=== PATIENT | male | born 1985 ===

== ENCOUNTER 2016-05-28 16:57 | Emergency (ER) | payer SELFPAY ==
[2016-05-28 17:36] VITALS: RESP 16
--- NOTE | 2016-05-28 17:48 | RAD ---
HISTORY: LLQ pain COMPARISON: No prior. FINDINGS: BOWEL: Dqss-aw-fvhnevsd constipation. . No obstruction. No free air. BONES: Normal. OTHER FINDINGS: None. IMPRESSION: Zbat-xz-kuykplvf constipation.
[2016-05-28 18:00] LABS: URINE BILIRUBIN NEGATIVE (NEGATIVE); URINE BLOOD NEGATIVE (NEGATIVE); URINE COLOR Straw (YELLOW); URINE GLUCOSE (UA) NORMAL (Normal); URINE KETONE NEGATIVE (NEGATIVE); URINE LEUKOCYTE ESTERASE NEG Leu/uL (Negative); URINE PROTEIN NEGATIVE (NEGATIVE); URINE UROBILINOGEN NORMAL mg/dL (0.2-1.0); WBC URINE < 1 /hpf (0-5)
--- NOTE | 2016-05-28 18:03 | C.PDOC ---
History Of Present Illness 30 yo male w/o significant PMHx come in for evaluation of LLQ intermittent pain for past few months. Pain is localized, non-radiating, aching. Otherwise, pt denies fever, chills, recent illness or abx use, sore throat, CP, SOB, N/V/D, hematemesis, melena, hematoschezia, back pain, UTI sx. Ambulate to ED for evaluation, not in any apparent distress. Time Seen by Provider: 05/28/16 17:14 Chief Complaint (Nursing): Abdominal Pain History Per: Patient History/Exam Limitations: no limitations Onset/Duration Of Symptoms: Intermittent Episodes (Past few months) Location Of Pain/Discomfort: LLQ Radiation Of Pain To:: None Past Medical History Reviewed: Historical Data, Nursing Documentation, Vital Signs Vital Signs: Last Vital Signs Temp 98 F 05/28/16 18:11 Pulse 70 05/28/16 18:11 Resp 16 05/28/16 18:11 BP 122/70 05/28/16 18:11 Pulse Ox 98 05/28/16 18:14 Family History: States: No Known Family Hx - Social History Hx Tobacco Use: No Hx Alcohol Use: Yes (social) Hx Substance Use: No - Immunization History Hx Tetanus Toxoid Vaccination: No Hx Influenza Vaccination: No Hx Pneumococcal Vaccination: No Review Of Systems Except As Marked, All Systems Reviewed And Found Negative. Constitutional: Negative for: Fever, Chills ENT: Negative for: Throat Pain Cardiovascular: Negative for: Chest Pain Respiratory: Negative for: Shortness of Breath Gastrointestinal: Negative for: Nausea, Vomiting, Diarrhea, Melena, Hematochezia , Hematemesis Musculoskeletal: Negative for: Back Pain Physical Exam - Physical Exam Appears: Well, Non-toxic, No Acute Distress Skin: Normal Color, Warm, Dry, No Rash Head: Atraumatic, Normacephalic Eye(s): bilateral: Normal Inspection Nose: Normal, No Discharge Oral Mucosa: Moist Throat: Normal, No Erythema, No Exudate, No Drooling Neck: Normal, Normal ROM, Supple Cardiovascular: Rhythm Regular Respiratory: Normal Breath Sounds, No Stridor, No Wheezing Gastrointestinal/Abdominal: Normal Exam, Soft, No Tenderness, No Distention, No Guarding, No Hernia Back: Normal Inspection Extremity: Normal ROM, No Pedal Edema Neurological/Psych: Oriented x3, Normal Speech ED Course And Treatment O2 Sat by Pulse Oximetry: 98 Pulse Ox Interpretation: Normal - Other Rad Abd, 2 views X-Ray: Read By Radiologist Interpretation: Accession No. : [id number]. Patient Name / ID : LULU CASPER / [id number]. Exam Date : 05/28/2016 17:27:38 ( Approved ). Study Comment : Sex / Age : M / 30Y. Creator : Oscar Rodriguez. Dictator : Oscar Rodriguez. Supervisor Sewer Maintenance : Music Journalist : Oscar Rodriguez. Approver2 : Report Date : 05/28/2016 17:47:29. My Comment : . HISTORY: LLQ pain. COMPARISON : No prior. FINDINGS: BOWEL: Skuh-yy-dweaqpqu constipation. . No obstruction. No free air. BONES: Normal. OTHER FINDINGS: None. IMPRESSION: Zyuh-ks-diaqrzdr constipation. Progress Note: On re-evaluation, pt is afebrile, hemodynamicaly stable. NOn- toxic. Abd: benign, (-) guarding, (-) rebound, (-) localized tenderness, (-) hernia. Back: (-) CVA tenderness. Xray of abd review and c/w constipation. Pt advised. ref. to f/u with PMD, GI in 2-3 days for re-eavl. return if any new changes. Medical Decision Making Medical Decision Making: PLAN: * X-Ray - Abdomen * Urinalysis Disposition Counseled Patient/Family Regarding: Studies Performed, Diagnosis, Need For Followup, Rx Given - Disposition Referrals: at [facility] [Outside] Disposition: HOME/ ROUTINE Disposition Time: 18:01 Condition: STABLE Additional Instructions: Take medication as prescribed as need for constipation Encourage fluids Follow up with PMD In 2-3 days for re-evaluation. Return to ED if any worsening or new changes. Prescriptions: Bisacodyl [Ducolax] 5 mg PO DAILY #10 ect Instructions: Constipation (ED) Print Language: [place] - Clinical Impression Clinical Impression: Constipation - PA / CEMENT WORKER / Resident Statement MD/DO has reviewed & agrees with the documentation as recorded. - Scribe Statement The provider has reviewed the documentation as recorded by the Scribe Kathy Kemp All medical record entries made by the Cassiibmiriam were at my direction and personally dictated by me. I have reviewed the chart and agree that the record accurately reflects my personal performance of the history, physical exam, medical decision making, and the department course for this patient. I have also personally directed, reviewed, and agree with the discharge instructions and disposition.
[2016-05-28 18:13] VITALS: BP 122/70; PULSE 70; TEMP 98
[2016-05-28 18:14] VITALS: O2SAT 98
== END 2016-05-28 18:11 | disposition home or self-care (01) ==
LOC: C.ER 16:57
DX: K59.00 Constipation, unspecified (principal)

== ENCOUNTER 2017-12-13 06:37 | Emergency (ER) | payer OTHER ==
[2017-12-13] MEDS ORDERED: Sodium Chloride 0.9% 1,000 ML IV ONE (07:14)
[2017-12-13] MEDS ORDERED: Sodium Chloride 0.9% 1,000 ML ONE (07:24)
[2017-12-13 07:57] LABS: URINE BILIRUBIN NEGATIVE (NEGATIVE); URINE BLOOD NEGATIVE (NEGATIVE); URINE CLARITY Clear (Clear); URINE COLOR Yellow (YELLOW); URINE GLUCOSE (UA) NORMAL (Normal); URINE LEUKOCYTE ESTERASE NEG Leu/uL (Negative); URINE PROTEIN NEGATIVE (NEGATIVE); URINE UROBILINOGEN NORMAL mg/dL (0.2-1.0)
[2017-12-13 08:03] LABS: BASO # 0.1 K/uL (0.0-0.2); BASO % 0.7 % (0.0-2.0); EOS # 1.4 K/uL (0.0-0.7); EOS % 17.6 % (0.0-4.0); HEMOGLOBIN 14.8 g/dL (12.0-18.0); LYMPH # 2.6 K/uL (1.0-4.3); MEAN CELL VOLUME 88.4 fL (80.0-94.0); MEAN CORPUSCULAR HEMOGLOBIN 30.8 pg (27.0-31.0); MEAN CORPUSCULAR HGB CONC 34.9 g/dL (33.0-37.0); MEAN PLATELET VOLUME 10.2 fL (7.2-11.7); MONO # 0.4 K/uL (0.0-0.8); MONO % 5.5 % (0.0-10.0); NEUT # 3.4 K/uL (1.8-7.0); NEUT % 43.2 % (50.0-75.0); NRBC % 0.1 % (0.0-2.0); RBC 4.81 Mil/uL (4.40-5.90); RED CELL DISTRIBUTION WIDTH 13.2 % (11.5-14.5); WHITE BLOOD COUNT 7.8 K/uL (4.8-10.8)
[2017-12-13 08:19] LABS: ALB/GLOB RATIO 1.4 (1.0-2.1); ALBUMIN 4.5 g/dL (3.5-5.0); ALT/SGPT 30 U/L (21-72); AST/SGOT 31 U/L (17-59); BLOOD UREA NITROGEN 12 mg/dL (9-20); CALCIUM 9.3 mg/dl (8.6-10.4); GFR NON-AFRICAN AMERICAN > 60; LIPASE 59 U/L (23-300)
--- NOTE | 2017-12-13 08:25 | RAD ---
Date of service: 12/13/2017 PROCEDURE: Radiographs of the chest and abdomen (obstructive series) HISTORY: abd pain COMPARISON: No prior. TECHNIQUE: AP radiograph of the chest, with upright and supine radiographs of the abdomen. FINDINGS: CHEST: Lungs: No airspace disease bilaterally. Unremarkable cardiomediastinal silhouette. Cardiovascular: Normal size heart. No pulmonary vascular congestion. Pleura: No pleural fluid. No pneumothorax. Other findings: None. ABDOMEN AND PELVIS: Bowel: Unremarkable bowel gas pattern. No evidence of mechanical obstruction. Free air: None. Bones: Unremarkable. Other findings: None. IMPRESSION: Unremarkable radiographs of chest and abdomen. No evidence of mechanical bowel obstruction.
--- NOTE | 2017-12-13 08:45 | C.PDOC ---
History Of Present Illness 32-year-old male, presents to the emergency department with complaints of three- week duration of intermittent lower abdominal pain. Patient denies constipation but states he has a bowel movement every other day. He reports pain worsens after eating. Denies any nausea/vomiting, fever, chills, back pain. Time Seen by Provider: 12/13/17 07:14 Chief Complaint (Nursing): Abdominal Pain History Per: Patient History/Exam Limitations: no limitations Onset/Duration Of Symptoms: Intermittent Episodes Past Medical History Reviewed: Historical Data, Nursing Documentation, Vital Signs Vital Signs: Last Vital Signs Temp 98.3 F 12/13/17 06:52 Pulse 67 12/13/17 06:52 Resp 14 12/13/17 06:52 BP 126/80 12/13/17 06:52 Pulse Ox 98 12/13/17 06:52 - Medical History PMH: No Chronic Diseases Surgical History: No Surg Hx Family History: States: No Known Family Hx - Social History Hx Tobacco Use: No Hx Alcohol Use: Yes (social) Hx Substance Use: No - Immunization History Hx Tetanus Toxoid Vaccination: No Hx Influenza Vaccination: No Hx Pneumococcal Vaccination: No Review Of Systems Constitutional: Negative for: Fever, Chills Cardiovascular: Negative for: Chest Pain Gastrointestinal: Positive for: Abdominal Pain. Negative for: Nausea, Vomiting, Diarrhea, Constipation Genitourinary: Negative for: Dysuria, Hematuria Musculoskeletal: Negative for: Back Pain Neurological: Negative for: Headache Physical Exam - Physical Exam Appears: Non-toxic, No Acute Distress Skin: Warm, Dry, No Rash Head: Atraumatic, Normacephalic Eye(s): bilateral: Normal Inspection, EOMI Nose: Normal Oral Mucosa: Moist Lips: Normal Appearing Neck: Normal ROM Chest: Symmetrical Cardiovascular: Rhythm Regular, No Murmur Respiratory: Normal Breath Sounds, No Accessory Muscle Use Gastrointestinal/Abdominal: Soft, No Tenderness, No Guarding, No Rebound Extremity: Normal ROM, No Deformity Neurological/Psych: Oriented x3, Normal Speech ED Course And Treatment - Laboratory Results Result Diagrams: 12/13/17 07:34 12/13/17 07:34 O2 Sat by Pulse Oximetry: 98 Pulse Ox Interpretation: Normal (RA) - Other Rad XR X-Ray: Viewed By Me, Read By Radiologist Interpretation: Accession No. : [id number]. Patient Name / ID : LULU CASPER / [id number]. Exam Date : 12/13/2017 07:31:56 ( Approved ). Study Comment : Sex / Age : M / 32Y. Creator : Porfirio Mata MD. Dictator : Porfirio Mata MD. Channel Man : Test Desk Trouble Locator : Porfirio Mata MD. Approver2 : Report Date : 12/13/2017 08:21:57. My Comment : . Date of service: 12/13/2017. PROCEDURE: Radiographs of the chest and abdomen (obstructive series). HISTORY: abd pain. COMPARISON: No prior. TECHNIQUE: AP radiograph of the chest, with upright and supine radiographs of the abdomen. FINDINGS: CHEST: Lungs: No airspace disease bilaterally. Unremarkable cardiomediastinal silhouette. Cardiovascular: Normal size heart. No pulmonary vascular congestion. Pleura: No pleural fluid. No pneumothorax. Other findings: None. ABDOMEN AND PELVIS: Bowel: Unremarkable bowel gas pattern. No evidence of mechanical obstruction. Free air: None. Bones: Unremarkable. Other findings: None. IMPRESSION: Unremarkable radiographs of chest and abdomen. No evidence of mechanical bowel obstruction. Medical Decision Making Medical Decision Making: impression: Abd pain Plan: * Bloodwork * Bentyl, IVF * X-Ray obstructive series * UA Reassess and Disposition Labs reviewed and unremarkable, urine clear. X-Ray of abdomen shows normal gas pattern and no obstruction. Patient re-evaluated was resting comfortably in no distress. He remained afebrile and reported no pain during observation. Abdomen remained soft without guarding or tenderness. I explained results to the patient and that he will need to follow up in the clinic for further evaluation. Patient understands and asks for work note. Disposition Counseled Patient/Family Regarding: Diagnosis, Need For Followup, Rx Given - Disposition Referrals: Lisa Mathews MD [Staff Provider] - Disposition: HOME/ ROUTINE Disposition Time: 08:57 Condition: STABLE Additional Instructions: Luisa la medicina segn sea necesario para el dolor. Por favor, vaya a la clnica para recibir ms gloria. Prescriptions: Omeprazole 10 mg PO DAILY #20 capsule. Instructions: Acute Abdomen (Belly Pain), Adult (DC) Forms: Work Excuse Print Language: [place] - POA Present On Arrival: None - Clinical Impression Clinical Impression: Abdominal pain - Scribe Statement The provider has reviewed the documentation as recorded by the Scribe (Valeria Fernandes) All medical record entries made by the Scribe were at my direction and personally dictated by me. I have reviewed the chart and agree that the record accurately reflects my personal performance of the history, physical exam, medical decision making, and the department course for this patient. I have also personally directed, reviewed, and agree with the discharge instructions and disposition.
[2017-12-13 09:05] VITALS: BP 109/64; PULSE 60; RESP 20; TEMP 98.2
[2017-12-13 13:44] VITALS: O2SAT 98
== END 2017-12-13 09:09 | disposition home or self-care (01) ==
LOC: C.ER 06:37
DX: R10.9 Unspecified abdominal pain (principal)
CPT/HCPCS: 74022; 80053; 81001; 83690; 85025; 96360; 99284; J7030

== ENCOUNTER 2018-01-22 09:49 | Emergency (ER) | payer OTHER ==
[2018-01-22 10:05] VITALS: BP 121/84; PULSE 72; RESP 18; TEMP 98.4; O2SAT 97
--- NOTE | 2018-01-22 11:54 | C.PDOC ---
History Of Present Illness 32 year old female presents to the ED for evaluation of right eye foreign body sensation that gradually developed 1 day ago. 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 He admits he washed his eyes with water but noticed swelling today to the right eye. Denies blurred vision, floaters, eye discharge, double vision, use of contact lenses, fever, and any other associated symptoms. Time Seen by Provider: 01/22/18 11:35 Chief Complaint (Nursing): Eye Problem History Per: Patient History/Exam Limitations: no limitations Onset/Duration Of Symptoms: Hrs Current Symptoms Are (Timing): Still Present Wears Contact Lens?: No Past Medical History Reviewed: Historical Data, Nursing Documentation, Vital Signs Vital Signs: Last Vital Signs Temp 98.4 F 01/22/18 10:02 Pulse 72 01/22/18 10:02 Resp 18 01/22/18 10:02 BP 121/84 01/22/18 10:02 Pulse Ox 97 01/22/18 10:02 Family History: States: Unknown Family Hx - Social History Hx Tobacco Use: No Hx Alcohol Use: Yes (social) Hx Substance Use: No - Immunization History Hx Tetanus Toxoid Vaccination: No Hx Influenza Vaccination: No Hx Pneumococcal Vaccination: No Review Of Systems Except As Marked, All Systems Reviewed And Found Negative. Constitutional: Negative for: Fever Eyes: Negative for: Pain (right eye foreign body sensation.), Vision Change, Other ((-) blurred vision. (-) floaters. (-) double vision. (-) eye discharge. ) Physical Exam - Physical Exam Appears: Well, Non-toxic, No Acute Distress Skin: Normal Color, Warm, Dry Head: Normacephalic Eye(s): bilateral: PERRL, EOMI (no pain or limitation on extraocular movement B/L), left: Other (mild edema, erythema over Right lower lid. NO conjunctival injection, no discharge, no periorbital edema or erythema. No fluoresceine uptake noted. No obvious corneal FB.) Ear(s): Bilateral: Normal Nose: No Flaring, No Discharge Oral Mucosa: Moist, No Drooling Tongue: Normal Appearing Lips: Normal Appearing Throat: No Erythema, No Drooling Neck: Normal ROM, Trachea Midline, Supple Extremity: Normal ROM, No Deformity, No Swelling ED Course And Treatment O2 Sat by Pulse Oximetry: 97 (RA) Pulse Ox Interpretation: Normal Progress Note: On re-eval, pt appears is afebrile, hemodynamicaly stable. NOn- toxic. Head: AT/NC. neck: Supple, (-) meningeal sign. ENT: no acute findings. Right eye: mild lower eye lid edema, erythema, no corneal FB noted. NO pain or limitation on extraocular movement, no fluoresceine uptake. No periorbital edema or erythema, no discharge. VA: R 20/20/, L 20/25, B/L 20/20 w/o correction. neuorlogicaly intact. Pt has clinical findings c/w corneal injury/abrasion, blepharitis. Pt advised. ref. to f/u with OPht In2 -3 days for re-eavl. return if any worsening or new changes. Disposition Counseled Patient/Family Regarding: Diagnosis, Need For Followup - Disposition Referrals: Raj Otero MD [Staff Provider] - Disposition: HOME/ ROUTINE Disposition Time: 11:55 Condition: STABLE Prescriptions: Neomycin/Polymyxin/Dexamethaso [Dexamethasone/Neomycin/Polymyxin] 1 oin RIGHTEYE Q6 #1 tube Instructions: Corneal Abrasion, Blepharitis Forms: [facility] (Belarusian), Work Excuse - Clinical Impression Clinical Impression: Corneal abrasion, Blepharitis - PA / INSURANCE UNDERWRITER SALES / Resident Statement MD/DO has reviewed & agrees with the documentation as recorded. - Scribe Statement The provider has reviewed the documentation as recorded by the Scribe (Yumiko Cabello) All medical record entries made by the Scribe were at my direction and personally dictated by me. I have reviewed the chart and agree that the record accurately reflects my personal performance of the history, physical exam, medical decision making, and the department course for this patient. I have also personally directed, reviewed, and agree with the discharge instructions and disposition.
[2018-01-22] MEDS ORDERED: Tdap Vaccine 0.5 ml Vial (10-64 yrs) IM ONE ×2 (11:58→12:09)
== END 2018-01-22 12:30 | disposition home or self-care (01) ==
LOC: C.ER 09:49
DX: S05.01XA Injury of conjunctiva and corneal abrasion without foreign body, right eye, initial encounter (principal); X58.XXXA Exposure to other specified factors, initial encounter; Y92.89 Other specified places as the place of occurrence of the external cause; Y99.0 Civilian activity done for income or pay; H01.002 Unspecified blepharitis right lower eyelid